=== PATIENT | female | born 1985 ===

== ENCOUNTER 2018-07-07 12:13 | Emergency (ER) | payer OTHER ==
[2018-07-07 12:23] VITALS: BP 149/93
--- NOTE | 2018-07-07 14:23 | Emergency Department Report ---
ED Extremity Problem HPI - General Chief complaint: Extremity Injury, Lower Stated complaint: LEFT LEG SWOLLWEN Time Seen by Provider: 07/07/18 14:11 Source: patient, family Mode of arrival: Ambulatory Limitations: No Limitations - History of Present Illness Initial comments: Patient care reports that she is having left leg pain and swelling for the past 4 years. She says she had multiple visits over the last several years to vascular and podiatry and also to [facility] for problems with swelling to her left lower extremity. She says they told her that they cannot find anything wrong. She said did told her she did not have any kind of arterial or venous problem in her extremity. Patient said that she has a history of anterior cruciate ligament tear to her left knee when she was in high school . Denies any chest pain or shortness of breath. History of blood clots or clotting disorder. She said her last ultrasound to rule out approximately was in 2014 and he tolerated that everything was normal. Pain to left leg as 10/10 and a can. Worse with walking. No medication taken. Patient. She denies any history of neuropathy or any diagnosis of neurological problems. Patient says she does not have a primary care physician because she just got new insurance and would like to be referred. MD Complaint: extremity pain, extremity swelling Onset/Timin -: year(s) Location: left, lower extremity History of Same: Yes -: No myalgia, Yes arthralgia, No fever, No associated dyspnea, No associated chest pain Radiation: none Severity scale (0 -10): 10 Quality: aching Consistency: constant Improves with: nothing Worsens with: weight bearing, walking Associated Symptoms: arthralgias. denies: chest pain, shortness of breath, fever, myalgias, rash - Related Data Previous Rx's Medication Instructions Recorded Last Taken Type Acetaminophen/Codeine [Tylenol 1 tab PO Q6H PRN #14 tab 07/07/18 Unknown Rx /Codeine # 3 tab] Ibuprofen [Motrin] 600 mg PO Q8H PRN #12 tablet 07/07/18 Unknown Rx Allergies Allergy/AdvReac Type Severity Reaction Status Date / Time No Known Allergies Allergy Verified 07/07/18 12:21 ED Review of Systems ROS: Stated complaint: LEFT LEG SWOLLWEN Other details as noted in HPI Constitutional: denies: chills, fever Eyes: denies: eye pain, eye discharge ENT: denies: ear pain, throat pain Respiratory: denies: cough, shortness of breath, SOB with exertion, SOB at rest , stridor, wheezing Cardiovascular: edema. denies: chest pain, palpitations, dyspnea on exertion, syncope, paroxysmal nocturnal dyspnea Gastrointestinal: denies: abdominal pain, nausea, diarrhea Genitourinary: denies: urgency, dysuria, frequency, hematuria, discharge Musculoskeletal: arthralgia. denies: back pain, joint swelling Skin: denies: rash, lesions Neurological: denies: headache, weakness, numbness, paresthesias, confusion, abnormal gait, vertigo ED Past Medical Hx - Past Medical History Previous Medical History?: Yes Additional medical history: Left leg swelling since 2004 - Surgical History Past Surgical History?: Yes Additional Surgical History: Hernia repair, , Tubal ligation - Family History Family history: no significant - Social History Smoking Status: Never Smoker Substance Use Type: None - Medications Home Medications: Home Medications Medication Instructions Recorded Confirmed Last Taken Type Acetaminophen/Codeine [Tylenol 1 tab PO Q6H PRN #14 tab 07/07/18 Unknown Rx /Codeine # 3 tab] Ibuprofen [Motrin] 600 mg PO Q8H PRN #12 tablet 07/07/18 Unknown Rx ED Physical Exam - General Limitations: No Limitations General appearance: alert, in no apparent distress - Head Head exam: Present: atraumatic, normocephalic, normal inspection - Eye Eye exam: Present: normal appearance, PERRL, EOMI Pupils: Present: normal accommodation - ENT ENT exam: Present: normal exam, normal orophraynx, mucous membranes moist, TM's normal bilaterally, normal external ear exam - Neck Neck exam: Present: normal inspection, full ROM. Absent: tenderness, lymphadenopathy - Respiratory Respiratory exam: Present: normal lung sounds bilaterally. Absent: respiratory distress, chest wall tenderness - Cardiovascular Cardiovascular Exam: Present: regular rate, normal rhythm, normal heart sounds. Absent: systolic murmur, diastolic murmur - GI/Abdominal GI/Abdominal exam: Present: soft, normal bowel sounds. Absent: distended, tenderness, guarding, rebound, rigid, organomegaly, mass, bruit, pulsatile mass , hernia - Extremities Exam Extremities exam: Present: normal inspection, full ROM, tenderness, normal capillary refill, pedal edema, other (No cce. + 2 pulses in all extremities, no neurovascular compromise). Absent: calf tenderness - Back Exam Back exam: Present: normal inspection, full ROM, other. Absent: tenderness, CVA tenderness (R), CVA tenderness (L), muscle spasm, paraspinal tenderness, vertebral tenderness, rash noted - Neurological Exam Neurological exam: Present: alert, oriented X3, normal gait, reflexes normal. Absent: motor sensory deficit - Psychiatric Psychiatric exam: Present: normal affect, normal mood - Skin Skin exam: Present: warm, dry, intact, normal color. Absent: rash ED Course Vital Signs 07/07/18 12:21 Temperature 98.6 F Pulse Rate 78 Respiratory 20 Rate Blood Pressure 149/93 O2 Sat by Pulse 100 Oximetry ED Medical Decision Making - Radiology Data Radiology results: report reviewed Ultrasound left lower extremity venous Doppler. Preliminary reports reviewed by radiologist and myself and found reports pending. See below for details 07/07/18 15:09 - Radiology Dept. Note by YVETTE SOTOMAYOR [facility] Num: [id number] : 1985 Patient Age: 32 LLE VENOUS DUPLEX COMPLETED. VAS LAB PRELIMINARY REPORT; NO EVIDENCE OF DVT/SVT NOTED IN VESSELS/SEGMENTS EXAMINED. PHYSICIANS REPORT TO FOLLOW....(RSK) Initialized on 07/07/18 15:09 - END OF NOTE - Medical Decision Making This is a 32-year-old female here reports that she has left lower extremity swelling or pain that is recurrent for over 11 years. 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 She does not have any history of DVT or any venous insufficiency. Patient says at that time she was with [facility] and they worked her up to include blood work and they could not find anything. She says that she is having pain that is worse than today and she came to the emergency room. Her last lower extremity ultrasound was done in 2014 at [facility] per patient. Patient was seen and examined by myself. I spoke to Dr. Salgado regarding patient presentation. Physical findings for left lower extremity swelling and with tenderness and no erythema. Patient has 2+ and bundle pedal pulses otherwise physical exam is normal. Venous Doppler ultrasound left lower extremity obtained and dictated by radiologist and report reviewed by myself. Patient has no DVT or SVT per preliminary report. Radiologist still to dictate final report. This is clinically indicated to patient and I discussed with her that she needs to follow-up with a vascular doctor. Patient says she has a new insurance and she does have a primary care and should like to be referred. She was given [place] 5/325 2 tablets po in emergency room which relieved her pain. I discussed the patient that I will refer her to internal medicine, vascular surgery and film coater and she needs to call and schedule an appointment for follow-up visit over the next 2 days to manage chronic left lower extremity swelling. Patient's vital signs are stable, she is afebrile and nontoxic in appearance. Her pain has been relieved and she was discharged home in stable condition with prescription for Motrin and Tylenol No. 3. Critical care attestation.: If time is entered above; I have spent that time in minutes in the direct care of this critically ill patient, excluding procedure time. ED Disposition Clinical Impression: Pain and swelling of left lower leg Disposition: DC-01 TO HOME OR SELFCARE Is pt being admited?: No Does the pt Need Aspirin: No Condition: Stable Instructions: Leg Edema (ED), Arthralgia (ED) Additional Instructions: Please see multiple referral to primary care, vascular doctor and film coater. If symptoms worsens, return to the emergency room. Take Motrin for mild to moderate pain and Tylenol 3 for severe pain Prescriptions: Acetaminophen/Codeine [Tylenol /Codeine # 3 tab] 1 tab PO Q6H PRN #14 tab PRN Reason: moderate to severe pain Ibuprofen [Motrin] 600 mg PO Q8H PRN #12 tablet PRN Reason: Pain Referrals: BORIS ARCE MD [Staff Physician] - 07/09/18 PAULINE GRANDA DPM [Staff Physician] - 07/09/18 MERRY CHEN JR, MD [Staff Physician] - 07/09/18 Forms: Work/School Release Form(ED)
[2018-07-07] MEDS ORDERED: NORCO 5/325 PO ONE (14:24)
== END 2018-07-07 17:41 | disposition home or self-care (01) ==
LOC: ED 12:13
DX: M79.605 Pain in left leg (principal); R22.42 Localized swelling, mass and lump, left lower limb; Z98.51 Tubal ligation status

== ENCOUNTER 2018-12-13 14:25 | Emergency (ER) | payer OTHER ==
[2018-12-13 14:36] VITALS: BP 161/104
[2018-12-13] MEDS ORDERED: TORADOL IM ONE (14:52)
[2018-12-13] MEDS ORDERED: DELTASONE PO ONE (14:52)
--- NOTE | 2018-12-13 14:58 | Emergency Department Report ---
ED Back Pain/Injury HPI - General Chief Complaint: Extremity Injury, Upper Stated Complaint: LEFT ARM/SIDE PAIN Time Seen by Provider: 12/13/18 14:46 Source: patient Limitations: No Limitations - History of Present Illness Initial Comments: This is a 33-year-old female nontoxic, well nourished in appearance, no acute signs of distress presents to the ED with c/o of left mid lower back pain and left upper back pain. Patient stated that yesterday she was lifting something heavy at work and felt "a pop" and started to have pain right away. Patient denies any radiation of pain. Patient denies any trauma. Denies any bladder or bowel instability. Patient denies any urinary symptoms. Denies any fever, chills, nausea, vomiting, headache, stiff neck, chest pain or shortness of breath. Patient denies any numbness or tingling. Denies any allergies. PMH includes hypertension which she was taking Norvasc 5 mg but is out of the medications. MD Complaint: back pain (this is) -: days(s) (2) Similar Symptoms Previously: Yes Place: work Radiation: none Severity: mild Severity scale (0 -10): 3 Quality: aching Consistency: intermittent Improves With: immobilization, sitting upright Worsens With: movement, walking Context: while lifting, turning/twisting Associated Symptoms: denies other symptoms. denies: confusion, weakness, chest pain, numbness, difficulty walking, cough, difficulty urinating, diaphoresis, incontinence, fever/chills, constipation, headaches, abdominal pain, loss of appetite, malaise, nausea/vomiting, rash, seizure, shortness of breath, syncope - Related Data Previous Rx's Medication Instructions Recorded Last Taken Type Acetaminophen/Codeine [Tylenol 1 tab PO Q6H PRN #14 tab 07/07/18 Unknown Rx /Codeine # 3 tab] Ibuprofen [Motrin] 600 mg PO Q8H PRN #12 tablet 07/07/18 Unknown Rx Methocarbamol [Robaxin-750] 750 mg PO QHS #10 tablet 12/13/18 Unknown Rx Naproxen [Naprosyn TAB] 500 mg PO Q8H PRN #20 tablet 12/13/18 Unknown Rx amLODIPine [Norvasc] 5 mg PO DAILY #30 tab 12/13/18 Unknown Rx Allergies Allergy/AdvReac Type Severity Reaction Status Date / Time No Known Allergies Allergy Verified 07/07/18 12:21 ED Review of Systems ROS: Stated complaint: LEFT ARM/SIDE PAIN Other details as noted in HPI Constitutional: denies: chills, fever Eyes: denies: eye pain, eye discharge, vision change ENT: denies: ear pain, throat pain Respiratory: denies: cough, shortness of breath, wheezing Cardiovascular: denies: chest pain, palpitations Endocrine: no symptoms reported Gastrointestinal: denies: abdominal pain, nausea, diarrhea Genitourinary: denies: urgency, dysuria, discharge Musculoskeletal: back pain. denies: joint swelling, arthralgia Skin: denies: rash, lesions Neurological: denies: headache, weakness, paresthesias Psychiatric: denies: anxiety, depression Hematological/Lymphatic: denies: easy bleeding, easy bruising ED Past Medical Hx - Past Medical History Previous Medical History?: Yes Hx Hypertension: Yes Additional medical history: Left leg swelling since 2004 - Surgical History Past Surgical History?: Yes Additional Surgical History: Hernia repair, , Tubal ligation - Social History Smoking Status: Never Smoker Substance Use Type: None - Medications Home Medications: Home Medications Medication Instructions Recorded Confirmed Last Taken Type Acetaminophen/Codeine [Tylenol 1 tab PO Q6H PRN #14 tab 07/07/18 Unknown Rx /Codeine # 3 tab] Ibuprofen [Motrin] 600 mg PO Q8H PRN #12 tablet 07/07/18 Unknown Rx Methocarbamol [Robaxin-750] 750 mg PO QHS #10 tablet 12/13/18 Unknown Rx Naproxen [Naprosyn TAB] 500 mg PO Q8H PRN #20 tablet 12/13/18 Unknown Rx amLODIPine [Norvasc] 5 mg PO DAILY #30 tab 12/13/18 Unknown Rx ED Physical Exam - General Limitations: No Limitations General appearance: alert, in no apparent distress - Head Head exam: Present: atraumatic, normocephalic - Eye Eye exam: Present: normal appearance - Neck Neck exam: Present: normal inspection, full ROM. Absent: tenderness, meningismus, lymphadenopathy - Respiratory Respiratory exam: Present: normal lung sounds bilaterally. Absent: respiratory distress, wheezes, rales, rhonchi, stridor, chest wall tenderness, accessory muscle use, decreased breath sounds, prolonged expiratory - Cardiovascular Cardiovascular Exam: Present: regular rate, normal rhythm, normal heart sounds. Absent: bradycardia, tachycardia, irregular rhythm, systolic murmur, diastolic murmur, rubs, gallop - Extremities Exam Extremities exam: Present: normal inspection, full ROM - Back Exam Back exam: Present: normal inspection, full ROM, paraspinal tenderness (left thoracic and left cervical paraspinal). Absent: tenderness, CVA tenderness (R), CVA tenderness (L), muscle spasm, vertebral tenderness, rash noted - Expanded Back Exam Expanded Back exam: Absent: saddle anesthesia Back exam: Negative Straight Leg Raising: Left, Right - Neurological Exam Neurological exam: Present: alert, oriented X3 - Psychiatric Psychiatric exam: Present: normal affect, normal mood - Skin Skin exam: Present: warm, dry, intact, normal color. Absent: rash ED Course Vital Signs 12/13/18 14:32 Temperature 98.5 F Pulse Rate 90 Respiratory 16 Rate Blood Pressure 161/104 O2 Sat by Pulse 100 Oximetry - Reevaluation(s) Reevaluation #1: 12/13/18 16:27 Patient is speaking in full sentences with no signs of distress noted. ED Medical Decision Making - Medical Decision Making This is a 33-year-old female that presents with low back strain. Patient is stable was examined by me. There is no spinal tenderness. There is no cauda equina syndrome during examination. No bladder or bowel instability. Patient received Toradol 60 mg IM and prednisone in the ED which stated that her symptoms has resolved and subsided. Patient is discharged with muscle relaxant and Motrin. Patient was instructed not to operate any machinery while taking muscle relaxant as they cause her drowsiness. Patient was referred to Follow-up with a primary care doctor in 3-5 days or if symptoms worsen and continue return to emergency room as soon as possible. At time of discharge, the patient does not seem toxic or ill in appearance. No acute signs of distress noted. Patient agrees to discharge treatment plan of care. No further questions noted by the patient. This chart is dictated with using [employer] Critical care attestation.: If time is entered above; I have spent that time in minutes in the direct care of this critically ill patient, excluding procedure time. ED Disposition Clinical Impression: Muscle strain of upper back Low back strain Qualifiers: Encounter type: initial encounter Qualified Code(s): S39.012A - Strain of muscle, fascia and tendon of lower back, initial encounter Disposition: DC-01 TO HOME OR SELFCARE Is pt being admited?: No Does the pt Need Aspirin: No Condition: Stable Instructions: Muscle Strain (ED), Methocarbamol (By mouth) Additional Instructions: Follow-up with a primary care doctor in 3-5 days or if symptoms worsen and continue return to emergency room as soon as possible. Take Naproxen and Robaxin as prescribed. Do not operate heavy machinery while taking Robaxin due to sedation Prescriptions: Methocarbamol [Robaxin-750] 750 mg PO QHS #10 tablet amLODIPine [Norvasc] 5 mg PO DAILY #30 tab Naproxen [Naprosyn TAB] 500 mg PO Q8H PRN #20 tablet PRN Reason: Pain, Moderate (4-6) Referrals: TULIO PEREZ [Primary Care Provider] - 3-5 Days PRIMARY CAREMD [Referring] - 3-5 Days COREEN WHITLEY MD [Staff Physician] - 3-5 Days [facility] [Outside] - 3-5 Days [facility] [Outside] - 3-5 Days Forms: Work/School Release Form(ED)
== END 2018-12-13 16:41 | disposition home or self-care (01) ==
LOC: ED 14:25
DX: S39.012A Strain of muscle, fascia and tendon of lower back, initial encounter (principal); S29.012A Strain of muscle and tendon of back wall of thorax, initial encounter; I10 Essential (primary) hypertension; Z98.51 Tubal ligation status; X50.0XXA Overexertion from strenuous movement or load, initial encounter; Y93.89 Activity, other specified; Y99.0 Civilian activity done for income or pay; Y92.69 Other specified industrial and construction area as the place of occurrence of the external cause
CPT/HCPCS: 96372; 99282; J1885; J7512